=== PATIENT | male | born 1995 | race Caucasian/White ===

== ENCOUNTER 2019-02-16 22:27 | Emergency (ER) | payer BC ==
[~2019-02-16] VITALS: Ht 180.3 cm; Wt 93.0 kg
[2019-02-16 22:51] VITALS: BP_SYST 164
--- NOTE | 2019-02-17 01:54 | NUR ---
Pt ambulatory to bed 8 for evaluation
--- NOTE | 2019-02-17 02:35 | NUR ---
Patient brought in ambulatory with mother complaining of dry cough, congestion, sore throat and body aches x 2 days. Denies any nausea,vomiting or diarrhea. denies any pain at this time. No other complaints/injuries per patient or as noted. Will continue to monitor.
[2019-02-17] MEDS ORDERED: NACL 0.9% 1,000 ML IV ONE (02:37)
--- NOTE | 2019-02-17 02:39 | NUR ---
ER Dr. Jolley at bedside examining patient.
[2019-02-17] MEDS ORDERED: ONDANSETRON HCL 4 MG/2 ML VIAL IVP ONE (02:45)
--- NOTE | 2019-02-17 03:01 | NUR ---
# 22 gauge angiocath placed to Lt hand. Use of asceptic technique. Opsite placed over site. Blood return noted. Blood for lab drawn from site. Flushed with 10 cc of normal saline. No evidence of infiltration noted. Patient tolerated well.
[2019-02-17 03:17] LABS: BASOPHILS # (AUTO) 0.1 K/uL (0.0-0.2); BASOPHILS % (AUTO) 0.9 % (0.0-2.0); EOSINOPHILS # (AUTO) 0.2 K/uL (0.0-0.4); EOSINOPHILS % (AUTO) 3.3 % (0.0-4.0); HEMATOCRIT 43.4 % (36-54); HEMOGLOBIN 14.9 g/dL (14.0-18.0); LYMPHOCYTES # (AUTO) 1.6 K/uL (1.0-5.5); LYMPHOCYTES % (AUTO) 25.4 % (20.5-51.5); MEAN CORPUSCULAR HEMOGLOBIN 30 pg (27-31); MEAN CORPUSCULAR HGB CONC 34 % (32-36); MEAN CORPUSCULAR VOLUME 89 fL (79.0-98.0); MONOCYTES # (AUTO) 0.6 K/uL (0.0-1.0); MONOCYTES % (AUTO) 10.2 % (1.7-9.3); NEUTROPHILS # (AUTO) 3.7 K/uL (1.8-7.7); NEUTROPHILS % (AUTO) 60.2 % (40.0-70.0); PLATELET COUNT (AUTO) 232 K/uL (130-430); RED BLOOD CELL COUNT(AUTO) 4.91 MIL/uL (4.2-6.2); RED CELL DISTRIBUTION WIDTH 13.2 % (9.0-15.0); WHITE BLOOD COUNT (AUTO) 6.2 K/uL (4.8-10.8)
[2019-02-17 03:27] LABS: CALCIUM 8.5 mg/dL (8.4-11.0); CREATININE 1.04 mg/dL (0.55-1.30); POTASSIUM 4.1 mmol/L (3.5-5.1)
[2019-02-17 03:30] LABS: TOTAL BILIRUBIN 1.5 mg/dL (0.0-1.0)
--- NOTE | 2019-02-17 03:30 | NUR ---
Report received from LAUREN March. All care endorsed.
--- NOTE | 2019-02-17 04:15 | NUR ---
Patient resting comfortably in bed. No acute distress, will continue to monitor.
[2019-02-17 05:18] VITALS: BP_SYST 140
--- NOTE | 2019-02-17 05:18 | NUR ---
Patient given written and verbal discharge instructions and verbalizes understanding. ER MD Jolley discussed with patient the results and treatment provided. Patient in stable condition. ID arm band removed. IV catheter removed intact and dressing applied, no active bleeding. No Rx given. Patient educated on pain management and to follow up with PMD. Pain Scale 0/10. Opportunity for questions provided and answered. Medication side effect fact sheet provided.
== END 2019-02-17 05:18 | disposition home or self-care (01) ==
LOC: SED 22:27
DX: J11.1 Influenza due to unidentified influenza virus with other respiratory manifestations (principal); I10 Essential (primary) hypertension
CPT/HCPCS: 36415; 80053; 83605; 85025; 86710; 87040; 99283; J7030; J2405